=== PATIENT | female | born 1965 | race Caucasian/White ===

== ENCOUNTER 2017-12-20 17:49 | Emergency (ER) | payer SELFPAY ==
--- NOTE | 2017-12-20 18:07 | UC ---
Respiratory Complaint HPI - HPI Summary HPI Summary: Pt presents with sinus pain/pressure/congestion for 1 week. Over the last 3 days has developed a productive cough and intermittently felt warm, but has not taken her temperature. Today she became much more SOB than usual. She tells me that she has a history of asthma, which she uses an albuterol HFA and albuterol nebulizer solution for prn. She did a nebulizer treatment about 30minutes [employer]AG REPA[employer]. Denies chills, sore throat, chest pain, abdominal pain, n/v/d/c. - History of Current Complaint Stated Complaint: COUGH Time Seen by Provider: 12/20/17 18:07 Hx Obtained From: Patient Hx Last Menstrual Period: 3 MONTHS AGO Onset/Duration: Gradual Onset Severity Initially: Moderate Severity Currently: Moderate Pain Intensity: 6 Pain Scale Used: 0-10 Numeric Character: Cough: Productive - Allergies/Home Medications Allergies/Adverse Reactions: Allergies Allergy/AdvReac Type Severity Reaction Status Date / Time general environmental Allergy Sneezing Uncoded 12/20/17 18:01 allergies Home Medications: Home Medications Acetaminophen [Tylenol Extra Strength] 1,000 mg PO Q8HR PRN 12/20/17 [History Confirmed 12/20/17] Albuterol 0.5% CONC NEB.MAMTA* [Albuterol 0.5ol*] 1 mg .SEE ORDER Q4HR 12/20/17 [ History Confirmed 12/20/17] PMH/Surg Hx/FS Hx/Imm Hx Respiratory History: Asthma GI/ History: Gastroesophageal Reflux Psychological History: Bipolar Disorder - Surgical History Surgical History: Yes Surgery Procedure, Year, and Place: c-sections x2 - Family History Known Family History: Positive: Hypertension, Diabetes, Respiratory Disease - Social History Lives: With Family Alcohol Use: Rare Substance Use Type: None Smoking Status (MU): Never Smoked Tobacco Household Exposure Type: Cigarettes Review of Systems Constitutional: Negative Skin: Negative Eyes: Negative ENT: Nasal Discharge, Sinus Congestion, Sinus Pain/Tenderness Respiratory: Shortness Of Breath, Cough Cardiovascular: Negative Gastrointestinal: Negative Neurovascular: Negative Neurological: Negative Psychological: Negative All Other Systems Reviewed And Are Negative: Yes Physical Exam - Summary Physical Exam Summary: GENERAL: Mildly ill appearing. Noticeable increased work of breathing. SKIN: No rashes, sores, lesions, or open wounds. HEENT: Head: AT/NC Eyes: Conjunctiva clear without inflammation or discharge. Ears: Hearing grossly normal. TMs intact, no bulging, erythema, or edema. Nose: Nasal mucosa mildly swollen and erythematous with yellow discharge. TTP maxillary and frontal sinus Throat: Posterior oropharynx without exudates, erythema, or tonsillar enlargement. Uvula midline. NECK: Supple. Nontender. No lymphadenopathy. CHEST: Scattered wheezing throughout. Decreased air movement and crackles at RLL. No accessory muscle use. Increased work of breathing and tachypnic at resps of 30. CV: RRR. Without m/r/g. Pulses intact. Brisk cap refill. NEURO: Alert. CN II-XII grossly intact. PSYCH: Age appropriate behavior. Triage Information Reviewed: Yes Respiratory Course/Dx - Course Course Of Treatment: Pt was given duoneb and felt mild subjective improvement. Lung sounds improved, but still with scant wheezing - she also was still noticeably tachypnic. CXR showed NO ACTIVE CARDIOPULMONARY DISEASE. Her peak flow at this time was 220. Nebulizer with albuterol alone was given along with prednisone 60mg. Pt reported feeling improved s/p and was no longer tachypnic. Lung sounds improved. Peak flow at this time was 300. She will be discharged with tessalon, augmentin, prednisone, and refill of her albuterol nebulizer solution. - Differential Dx/Diagnosis Provider Diagnoses: Asthma exacerbation. Bronchitis. Sinusitis Discharge - Sign-Out/Discharge Documenting (check all that apply): Discharge/Admit/Transfer - Discharge Plan Condition: Stable Disposition: HOME Prescriptions: Albuterol 2.5MG/3ML (0.083%)* [Ventolin 2.5 MG/3 ML NEB.MAMTA*] 2.5 mg INH Q6H PRN #1 box PRN Reason: Sob/Wheezing Amoxicillin/Clavulanate TAB* [Augmentin TAB 875*] 875 mg PO BID #20 tab Benzonatate CAP* [Tessalon 100 MG CAP*] 100 mg PO TID PRN #21 cap PRN Reason: Cough predniSONE TAB* [Deltasone TAB*] 50 mg PO DAILY #5 tab Patient Education Materials: Asthma (ED) Referrals: Margarita Bowden MD [Primary Care Provider] - Additional Instructions: If you develop a fever, shortness of breath, chest pain, new or worsening symptoms - please call your PCP or go to the ED. - Billing Disposition and Condition Condition: STABLE Disposition: HOME
[2017-12-20] MEDS ORDERED: Albuterol/Ipratropium NEB.SOL* Albuterol 2.5 MG/Ipratropium 0.5 MG 3 ML INH ONE (18:12)
--- NOTE | 2017-12-20 18:50 | RAD ---
HISTORY: Cough, shortness of breath COMPARISONS: None VIEWS: 4: Frontal dual-energy and lateral views of the chest. FINDINGS: CARDIOMEDIASTINAL SILHOUETTE: The cardiomediastinal silhouette is normal. JOSE C: The jose c are normal. PLEURA: The costophrenic angles are sharp. No pleural abnormalities are noted. LUNG PARENCHYMA: The lungs are clear. ABDOMEN: The upper abdomen is clear. There is no subphrenic gas. BONES AND SOFT TISSUES: Mild degenerative changes are noted. OTHER: None. IMPRESSION: NO ACTIVE CARDIOPULMONARY DISEASE.
[2017-12-20 19:05] VITALS: BP 118/68
[2017-12-20] MEDS ORDERED: predniSONE TAB* 20 MG PO ONE (19:11)
[2017-12-20] MEDS ORDERED: Albuterol 2.5 MG/3 ML NEB.SOL* (0.083%) INH ONE (19:11)
== END 2017-12-20 19:50 | disposition home or self-care (01) ==
LOC: UCEAST 17:49
DX: J45.901 Unspecified asthma with (acute) exacerbation (principal); J32.9 Chronic sinusitis, unspecified; K21.9 Gastro-esophageal reflux disease without esophagitis; F31.9 Bipolar disorder, unspecified
CPT/HCPCS: 71046; 99213; A9270-GY; G0463; J7512